=== PATIENT | male | born 2000 | race Caucasian/White ===

== ENCOUNTER 2020-09-16 13:56 | Emergency (ER) | payer BC, SELFPAY ==
[2020-09-16 14:01] VITALS: BP 131/60; PULSE 70; RESP 16; TEMP 36.6; O2SAT 99; BMI 25.0
[2020-09-16 14:20] VITALS: BP 131/60; PULSE 70; RESP 16; TEMP 36.6; O2SAT 99
--- NOTE | 2020-09-16 14:29 | VDLE_ITS ---
Reason For Study: Swelling RIGHT GSV is normal. CFV is compressible, spontaneous, phasic, competent and demonstrates normal augmentation. FV is compressible, spontaneous, phasic, competent and demonstrates normal augmentation. POP V is compressible, spontaneous, phasic, competent and demonstrates normal augmentation. T/P Trunk is compressible. PTV is compressible. RT PerV is compressible. Procedure This is a venous duplex using B-mode, color flow and spectral Doppler. Exam performed portable in ED. A preliminary report was called and/or faxed to [facility]. VL/Venous Duplex US, Unilateral Interpretation Summary There is no evidence of right lower extremity deep vein thrombosis. Right great saphenous vein appears patent and compressible segmentally. Ordering Physician: Yoel Flores Performed By: Caty Bradley RVT
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
--- NOTE | 2020-09-16 14:50 | RAD_ITS ---
STUDY: X-RAY - RIGHT TIBIA AND FIBULA REASON FOR EXAM: Male, 20 years old. Leg pain TECHNIQUE: 2 view(s) of the tibia and fibula were obtained. COMPARISON: None. FINDINGS: Normal visualized tibia. Normal visualized fibula. The soft tissue structures are unremarkable. RAD/Tibia & Fibula 2 Views IMPRESSION: Normal x-ray examination of the tibia and fibula. Electronically Signed: Jimmy Estrella MD at 15:07 EDT , Service support ,
[2020-09-16] MEDS: Smz/Tmp Ds Tablet 1 TABLET PO (14:58)
[2020-09-16] MEDS: Cephalexin 250 MG Capsule 500 MG PO (14:58)
[2020-09-16 15:42] VITALS: PULSE 69; RESP 15; O2SAT 99
== END 2020-09-16 15:42 | disposition home or self-care (01) ==
PROVIDERS: Emergency Provider Student in an Organized Health Care Education/Training Program
DX: S80.11XA Contusion of right lower leg, initial encounter (principal); L03.115 Cellulitis of right lower limb; V86.56XA Driver of dirt bike or motor/cross bike injured in nontraffic accident, initial encounter
CPT/HCPCS: 73590; 93971; 99283; A4216